=== PATIENT | female | born 1960 | race African-American/Black ===

== ENCOUNTER 2019-11-09 12:25 | Outpatient (CLI) | payer BC ==
[~2019-11-09 12:25] MED LIST: Iopamidol-370 76% 500 ML 1 ML ONE
--- NOTE | 2019-11-09 13:27 | CT ---
CT ABDOMEN AND PELVIS WITH IV CONTRAST 11/09/2019 CLINICAL INFORMATION: Alcohol-induced pancreatitis. Upper abdominal pain. History of cyst of the pancreas. History of colon polyps. COMPARISON: None. Technique: Multiple contiguous axial CT images are obtained through the abdomen and pelvis with IV contrast. Cor onal reformatted images are provided. FINDINGS: Lower Chest: Mild dependent bibasilar atelectasis. Vessels: Vascular calcifications are seen in the abdominal aorta and iliac arteries. Abdomen: Portal vein:Patent Gallbladder: Decompressed. Liver: Diminished attenuation likely attributable to fatty infiltration. Spleen: within normal limits. Pancreas: A 6.2 cm circumscribed cystic lesion is seen involving the tail of the pancreas. A few shabbir tional tiny subcentimeter cystic lesions are also seen with a 12 mm cystic structure also seen in the tail of the pancreas. Calcifications are seen in the region of the junction of the body and tail of the pancreas likely sequela of prior pancreatitis. Adrenals: within normal limits. Kidneys: A 2.2 cm fluid attenuation cystic lesion is seen in the superior pole left kidney most garcía tible with a renal cyst. Right kidney has a normal CT appearance. Bowel: Evidence of colonic diverticulosis. Loops of small bowel are normal in caliber. Appendix: The appendix is visualized and normal in caliber. Peritoneum: No ascites or free air; no fluid collection. Mesentery and Retroperitoneum: No enlarged mesenteric or retroperitoneal lymph nodes. Abdominal Wall: within normal limits. Pelvis: Reproductive Organs: No pelvic masses. Pelvis within normal limits. Bladder: Mostly decompressed but otherwise grossly within normal limits. Bones: Prominent degenerative changes L5-S1 level. IMPRESSION: 1. Large cystic pancreatic lesion tail of the pancreas. Given patient's history of prior pancreatitis as well as calcifications within the adjacent pancreas also suggesting prior pancreatitis, this likely represents pseudocyst formation. However, there are closely adjacent smaller hypodense cystic lesions within the tail of the pancreas largest measuring 12 mm. Given small size of these cystic lesions, follow-up MRI abdomen in 6 months is recommended for further evaluation.. 3. Left renal cyst. 4. Colonic diverticulosis. 5. Fatty infiltration of the liver. 6. Colonic diverticulosis.
== END 2019-11-09 12:26 | disposition home or self-care (01) ==
LOC: BICCT 12:25
PROVIDERS: ATTEND Internal Medicine Gastroenterology
DX: K85.20 Alcohol induced acute pancreatitis without necrosis or infection (principal); K86.2 Cyst of pancreas; R10.10 Upper abdominal pain, unspecified; Z86.010 Personal history of colon polyps; N28.1 Cyst of kidney, acquired; K57.30 Diverticulosis of large intestine without perforation or abscess without bleeding; K76.0 Fatty (change of) liver, not elsewhere classified
CPT/HCPCS: 74177; Q9967

== ENCOUNTER 2020-04-15 16:15 | Inpatient (IN) | payer BC ==
[2020-04-15] MEDS ORDERED: Morphine 4 MG/ML VIAL ONE ×2 (16:28→19:46)
[2020-04-15] MEDS ORDERED: Ondansetron PF 4 MG/2 ML Vial IVP PRN (17:08)
[2020-04-15] MEDS ORDERED: Senokot S 8.6-50 MG TAB PO PRN (17:12)
--- NOTE | 2020-04-15 18:10 | HP ---
CHIEF COMPLAINT: Abdominal pain. HISTORY OF PRESENT ILLNESS: The patient is a 60-year-old female with past medical history of alcoholic pancreatitis, CVA, hypertension, and hyperlipidemia, who presented to the hospital with worsening abdominal pain. The patient's symptoms started about a week ago and her last alcohol intake was a few days prior to the pain. The patient stated that the pain is localized in her upper abdominal area and has been worsening over the past week. She is unable to tolerate eating or drinking due to the worsening of the pain. In the ER, ultrasound of the abdomen was unremarkable and CT scan revealed evidence of pancreatitis with enlarging pseudocyst in addition to duodenitis and gastritis. REVIEW OF SYSTEMS: Negative except as noted in HPI. PAST MEDICAL HISTORY: As noted above. PAST SURGICAL HISTORY: Include back surgery. SOCIAL HISTORY: Alcohol use as noted above. She denies illicit drug use, and endorsed tobacco smoking. ALLERGIES: NO KNOWN ALLERGIES. FAMILY HISTORY: Noncontributory to the current presentation. PHYSICAL EXAMINATION: GENERAL: The patient is alert and oriented x3. HEENT: Head is normocephalic and atraumatic. Extraocular muscles are intact. NECK: Supple. CHEST: Clear to auscultation bilaterally. CARDIOVASCULAR: Examination revealed normal S1, S2, regular rate and rhythm. No murmurs, rubs, or gallops. ABDOMEN: Soft and tender to palpation to the epigastric area. Bowel sounds are present. NEUROLOGIC: Unremarkable. ASSESSMENT: 1. Acute pancreatitis secondary to alcohol use. 2. Alcoholic gastritis. 3. Duodenitis. 4. Hypertension. 5. Hyperlipidemia. PLAN: The patient will be admitted to the hospital. Start IV fluid bolus and then continue with normal saline at 150 mL/h. Clear liquid diet. Protonix 40 mg IV twice daily. Check CBC and CMP in the morning. The patient is not septic and there is no evidence of gallbladder disease. Lovenox for DVT prophylaxis. Job ID: [id number]
[2020-04-15] MEDS ORDERED: Sodium Chloride 0.9% 500 ML IV SCH (19:00)
[2020-04-15] MEDS: Morphine 4 MG/ML VIAL SLOW IVP PRN (20:58)
[2020-04-15] MEDS: Sodium Chloride 0.9% 1,000 ML IV SCH ×2 (20:58→21:09)
[2020-04-15] MEDS: Pantoprazole 40 MG VIAL IVP SCH (20:58)
[2020-04-15 22:52] VITALS: BMI 23.4
[2020-04-16] MEDS: Acetaminophen 325 MG TAB PO PRN (00:57)
[2020-04-16] MEDS: Morphine 4 MG/ML VIAL SLOW IVP PRN ×5 (00:58→20:32)
[2020-04-16] MEDS: Sodium Chloride 0.9% 1,000 ML IV SCH ×4 (03:47→21:31)
[2020-04-16 06:30] LABS: #Lymphocytes 1.6 thou/uL (1.20-3.40); #Neutrophils 9.8 thou/uL (1.40-6.50); %Basophils 0.3 % (0.0-1.0); %Eosinophils 0.2 % (0.0-10.0); %Lymphocytes 12.9 % (21.0-51.0); %Monocytes 7.8 % (0.0-10.0); %Neutrophils 78.8 % (42.0-75.0); Mean Corpuscular HGB CONC 33.9 g/dL (32.0-36.0); Mean Corpuscular Hemoglobin 33.7 pg (27.0-31.0); Mean Corpuscular Volume 99.4 fL (78.0-98.0); Mean Platelet Volume 7.5 fL (7.4-10.4); Platelet Count 313 thou/uL (130-400); RBC Distribution Width 13.7 % (11.5-14.5); Red Blood Cell (RBC) Count 2.97 mill/uL (4.20-5.40); White Blood Cell (WBC) Count 12.5 thou/uL (4.8-10.8)
[2020-04-16 06:54] LABS: ALT (SGPT) 85 U/L (8-55); AST (SGOT) 88 U/L (5-34); Albumin 2.4 g/dL (3.5-5.0); Alkaline Phosphatase 399 U/L (40-110); Bilirubin, Direct 3.3 mg/dL (0.1-0.3); Bilirubin, Total 4.1 mg/dL (0.2-1.2); Protein, Total 5.3 g/dL (6.0-8.3)
[2020-04-16 06:59] LABS: Anion Gap 13 mmol/L (10-20); BUN (Urea Nitrogen) 10 mg/dL (9.8-20.1); Calc. Creatinine Clearance 83 mL/min (70-130); Calcium 7.2 mg/dL (7.8-10.44); Carbon Dioxide 19 mmol/L (22-29); Chloride 109 mmol/L (98-107); Estimated GFR-MDRD Greater than 90; Glucose 98 mg/dL (70-105); Lipase 76 U/L (8-78); Sodium 138 mmol/L (136-145)
[2020-04-16] MEDS: Pantoprazole 40 MG VIAL IVP SCH ×2 (08:22→20:33)
[2020-04-16] MEDS: Enoxaparin Sodium 40 MG/0.4 ML SYRINGE SC SCH (08:23)
[2020-04-16] MEDS ORDERED: FLU VACC QS2020-21(6MOS UP)/PF 60 MCG/0.5 ML SYRINGE IM ONE (09:00)
[2020-04-16] MEDS ORDERED: Sodium Chloride 0.9% 500 ML IV SCH (09:45)
[2020-04-16] MEDS ORDERED: Potassium Chloride 20 MEQ TAB PO SCH (09:45)
--- NOTE | 2020-04-16 13:37 | PDOC.HOSPP ---
- Subjective Encounter Date: 04/16/20 Subjective: The patient still complaining of severe epigastric pain. - Objective Vital Signs & Weight: Vital Signs (12 hours) Temp Pulse Resp BP Pulse Ox 04/16/20 11:48 98.9 F 108 H 18 132/83 100 04/16/20 07:25 99.2 F 105 H 22 H 138/83 98 04/16/20 04:11 98.4 F 102 H 18 102/66 98 Weight Weight 145 lb 4.8 oz I&O: 04/15/20 04/16/20 04/17/20 06:59 06:59 06:59 Intake Total 1800 Balance 1800 Result Diagrams: 04/16/20 06:13 04/16/20 06:13 Hospitalist ROS - Medication Medications: Active Medications Generic Name Dose Route Start Last Admin Trade Name Freq PRN Reason Stop Dose Admin Acetaminophen 650 mg 04/15/20 17:08 04/16/20 00:57 Acetaminophen 325 Mg Tab PO 650 mg Q4H PRN Administration Headache/Fever/Mild Pain (1-3) Enoxaparin Sodium 40 mg 04/16/20 09:00 04/16/20 08:23 Enoxaparin Sodium 40 Mg/0.4 Ml Syringe SC 40 mg 0900 KATHLEEN Administration Sodium Chloride 1,000 mls @ 150 mls/hr 04/15/20 17:15 04/16/20 11:07 Normal Saline 0.9% IV 1,000 mls .Q6H40M KATHLEEN Administration Morphine Sulfate 4 mg 04/15/20 17:12 04/16/20 12:36 Morphine 4 Mg/Ml Vial SLOW IVP 4 mg Q4H PRN Administration Moderate to Severe Pain (6-10) Pantoprazole Sodium 40 mg 04/15/20 21:00 04/16/20 08:22 Pantoprazole 40 Mg Vial IVP 40 mg Q12HR KATHLEEN Administration Sodium Chloride 10 ml 04/15/20 21:00 04/16/20 08:23 Flush - Normal Saline 10 Ml Syringe IVF 10 ml Q12HR KATHLEEN Administration - Exam General Appearance: awake alert ENT: normocephalic atraumatic Neck: supple Heart: RRR Respiratory: normal chest expansion, no tachypnea Gastrointestinal: soft, tender to palpation Neurological: cranial nerve grossly intact, no focal deficits Hosp A/P (1) Acute pancreatitis Code(s): K85.90 - ACUTE PANCREATITIS WITHOUT NECROSIS OR INFECTION, UNSP Status: Acute (2) Alcoholic gastritis Code(s): K29.20 - ALCOHOLIC GASTRITIS WITHOUT BLEEDING Status: Acute (3) Duodenitis Code(s): K29.80 - DUODENITIS WITHOUT BLEEDING Status: Acute (4) Dehydration Code(s): E86.0 - DEHYDRATION Status: Acute (5) Pancreatic pseudocyst Code(s): K86.3 - PSEUDOCYST OF PANCREAS Status: Acute - Plan Continue clear liquid diet and IV morphine as needed for pain. Give another bolus of normal saline 500 cc. Continue NS at 150/h. Replace potassium. Lovenox for DVT prophylaxis.
[2020-04-16] MEDS: Acetaminophen/Codeine 30-300mg Tablet PO PRN (21:58)
[2020-04-17] MEDS: Morphine 4 MG/ML VIAL SLOW IVP PRN (00:49)
[2020-04-17] MEDS: Acetaminophen/Codeine 30-300mg Tablet PO PRN ×2 (03:54→10:10)
[2020-04-17 08:35] LABS: #Eosinphils 0.1 thou/uL (0.0-0.7); #Lymphocytes 1.4 thou/uL (1.20-3.40); #Monocytes 0.8 thou/uL (0.11-0.59); #Neutrophils 12.8 thou/uL (1.40-6.50); %Basophils 0.1 % (0.0-1.0); %Eosinophils 0.4 % (0.0-10.0); %Lymphocytes 9.4 % (21.0-51.0); %Monocytes 5.5 % (0.0-10.0); %Neutrophils 84.6 % (42.0-75.0); Hemoglobin 9.8 g/dL (12.0-16.0); Mean Platelet Volume 7.3 fL (7.4-10.4); Platelet Count 344 thou/uL (130-400); RBC Distribution Width 13.8 % (11.5-14.5); Red Blood Cell (RBC) Count 2.96 mill/uL (4.20-5.40); White Blood Cell (WBC) Count 15.1 thou/uL (4.8-10.8)
[2020-04-17] MEDS: Enoxaparin Sodium 40 MG/0.4 ML SYRINGE SC SCH ×2 (08:36→21:16)
[2020-04-17] MEDS: Pantoprazole 40 MG VIAL IVP SCH ×2 (08:38→21:18)
[2020-04-17 08:56] LABS: Anion Gap 13 mmol/L (10-20); BUN (Urea Nitrogen) 7 mg/dL (9.8-20.1); Calc. Creatinine Clearance 104 mL/min (70-130); Calcium 6.6 mg/dL (7.8-10.44); Carbon Dioxide 17 mmol/L (22-29); Chloride 111 mmol/L (98-107); Estimated GFR-MDRD Greater than 90; Glucose 138 mg/dL (70-105); Sodium 138 mmol/L (136-145)
[2020-04-17 09:15] LABS: Potassium 2.9 mmol/L (3.5-5.1)
[2020-04-17] MEDS ORDERED: Potassium Chloride 20 MEQ TAB PO SCH ×2 (09:45→15:00)
[2020-04-17] MEDS: Sodium Chloride 0.9% 1,000 ML IV SCH (10:00)
[2020-04-17] MEDS: 1/2 NS w/KCL 20 mEq 1,000 ML IV SCH ×2 (10:12→18:52)
[2020-04-17] MEDS ORDERED: fentaNYL Citrate/PF 2,000 MCG in Sodium Chloride 0.9% 60 ML IV PRN (11:30)
--- NOTE | 2020-04-17 12:00 | CT ---
CT Abdomen Pelvis W Con: 04/17/2020 9:07 AM CLINICAL INFORMATION: Pancreatitis COMPARISON: 11/09/2019 TECHNIQUE: Multiple contiguous axial images were obtained and a CT of the abdomen and pelvis with IV contrast. Oral contrast was administered. Coronal and sagittal reformats were performed. FINDINGS: Lower Chest: Small left pleural effusion. Bibasilar dependent atelectasis. Atelectasis is also seen i n the lingula. Abdomen: Liver: within normal limits. Bile Ducts: Enlargement of common bile duct to 10 mm. Central intrahepatic biliary dilatation is also seen. Gallbladder: No calcified gallstones. Normal caliber wall. Pancreas: Stranding changes are seen surrounding the pancreas consistent with acute pancreatitis. The re is enlargement of the pancreatic duct to 10 mm. There is enhancement of the pancreatic parenchyma. Calcifications in the pancreas may be from chronic pancreatitis. There is a fluid collect ion in the tail the pancreas measuring 7.2 cm in size. This has enlarged compared to the prior examination. Smaller subcentimeter fluid collections are seen along the anterior aspect of this large r fluid collection. Fluid density is seen in the anterior aspect of the spleen which was not seen on the prior examination and likely represents fluid collection in the anterior spleen. There is a fl uid collection posterior to the stomach measuring 3.3 cm in size which is new compared to the prior examination. There is a fluid collection in the head of the pancreas measuring 2.3 cm in size which i s also new. Lastly, there is a smaller hypodensity in the head of the pancreas which may represent an additional fluid collection There is partially occlusive thrombus in the portal vein. No pseudoaneurysm is seen extending from th e splenic artery. Spleen: within normal limits. Adrenals: within normal limits. Kidneys: 2.4 cm left renal cyst. Pelvis: Reproductive Organs: No pelvic masses. Ureters: within normal limits. Bladder: within normal limits. Peritoneum: A small amount of free fluid is seen in the pelvis. No free air is identified. Bowel: Normal caliber. Mesentery and Retroperitoneum: No enlarged mesenteric or retroperitoneal lymph nodes. Vessels: Atherosclerotic calcifications. Abdominal Wall: within normal limits. Bones: Degenerative changes in the spine. IMPRESSION: 1. Severe acute pancreatitis with multiloculated fluid collections surrounding the pancreas and invol ving the spleen. The majority of these are new compared to the prior examination. 2. Portal vein thrombus 3. Enlargement of the biliary tree is also new compared to the prior examination. 4. Left pleural effusion and bilateral atelectasis
[2020-04-17] MEDS: Piperacillin/Tazobactam 3.375 GM in Sodium Chloride 0.9% 100 ML IVPB SCH ×2 (12:03→18:52)
--- NOTE | 2020-04-17 14:11 | PDOC.HOSPP ---
- Subjective Encounter Date: 04/17/20 Subjective: The patient's abdominal pain is not controlled. - Objective Vital Signs & Weight: Vital Signs (12 hours) Temp Pulse Resp BP Pulse Ox 04/17/20 12:00 98.6 F 111 H 20 157/94 H 93 L 04/17/20 08:43 92 L 04/17/20 08:00 97.6 F 106 H 20 156/94 H 92 L 04/17/20 04:00 99.3 F 101 H 24 H 151/85 H 96 Weight Weight 145 lb 4.8 oz I&O: 04/16/20 04/17/20 04/18/20 06:59 06:59 06:59 Intake Total 1800 2700 Balance 1800 2700 Result Diagrams: 04/17/20 07:55 04/17/20 07:55 Hospitalist ROS - Medication Medications: Active Medications Generic Name Dose Route Start Last Admin Trade Name Freq PRN Reason Stop Dose Admin Acetaminophen 650 mg 04/15/20 17:08 04/16/20 00:57 Acetaminophen 325 Mg Tab PO 650 mg Q4H PRN Administration Headache/Fever/Mild Pain (1-3) Enoxaparin Sodium 40 mg 04/16/20 09:00 04/17/20 08:36 Enoxaparin Sodium 40 Mg/0.4 Ml Syringe SC 40 mg 0900 KATHLEEN Administration Piperacillin Sod/Tazobactam 100 mls @ 200 mls/hr 04/17/20 12:00 04/17/20 1 2:03 Sod 3.375 gm/ Sodium Chloride IVPB 100 mls Q6HR KATHLEEN Administration Potassium Chloride/Sodium Chloride 1,000 mls @ 125 mls/hr 04/17/20 09:45 04/17/20 10:12 1/2 Ns W/Kcl 20 Meq IV 1,000 mls .Q8H KATHLEEN Administration Fentanyl Citrate 2,000 mcg/ 100 mls @ 0 mls/hr 04/17/20 11:30 04/17/20 11:57 Sodium Chloride IV 100 mls INF PRN Administration Pain As Directed Pantoprazole Sodium 40 mg 04/15/20 21:00 04/17/20 08:38 Pantoprazole 40 Mg Vial IVP 40 mg Q12HR KATHLEEN Administration Sodium Chloride 10 ml 04/15/20 21:00 04/17/20 10:15 Flush - Normal Saline 10 Ml Syringe IVF Not Given Q12HR KATHLEEN - Exam General Appearance: awake alert ENT: normocephalic atraumatic Neck: supple, no JVD Heart - other findings: Tachycardia with regular rhythm Respiratory: CTAB, no wheezes, no rales, no ronchi Gastrointestinal: soft, tender to palpation Neurological: no focal deficits, no new deficit Hosp A/P (1) Acute pancreatitis Code(s): K85.90 - ACUTE PANCREATITIS WITHOUT NECROSIS OR INFECTION, UNSP Status: Acute (2) Alcoholic gastritis Code(s): K29.20 - ALCOHOLIC GASTRITIS WITHOUT BLEEDING Status: Acute (3) Duodenitis Code(s): K29.80 - DUODENITIS WITHOUT BLEEDING Status: Acute (4) Dehydration Code(s): E86.0 - DEHYDRATION Status: Acute (5) Pancreatic pseudocyst Code(s): K86.3 - PSEUDOCYST OF PANCREAS Status: Acute (6) Peripancreatic abscess Code(s): K85.90 - ACUTE PANCREATITIS WITHOUT NECROSIS OR INFECTION, UNSP Status: Acute (7) Splenic abscess Code(s): D73.3 - ABSCESS OF SPLEEN Status: Acute (8) Portal vein thrombosis Code(s): I81 - PORTAL VEIN THROMBOSIS Status: Acute (9) Dilated bile duct Code(s): K83.8 - OTHER SPECIFIED DISEASES OF BILIARY TRACT Status: Acute (10) Hypocalcemia Code(s): E83.51 - HYPOCALCEMIA Status: Acute (11) Hypomagnesemia Code(s): E83.42 - HYPOMAGNESEMIA Status: Acute (12) Hypokalemia Code(s): E87.6 - HYPOKALEMIA Status: Acute - Plan The patient's condition deteriorated over the past 24 hours. She is currently septic with severe pancreatitis and CT scan of the abdomen revealed fluid collections around the pancreas and in the spleen likely presenting abscesses. Dilated common bile duct and portal vein thromboses were also noted. The patient was started on IV Zosyn and meropenem. Continue IV fluids. Replace potassium and magnesium and calcium. Start anticoagulation with Lovenox 1 g/kg every 12 hours if no surgical intervention is planned at this time. The patient will be moved to the [facility] for closer monitoring. I have requested the help of infectious disease, gastroenterology, and surgery services.
[2020-04-17] MEDS ORDERED: Magnesium Sulfate 4 GM in Sodium Chloride 0.9% 250 ML 250 ML IVPB SCH (15:15)
[2020-04-17] MEDS ORDERED: Calcium Gluc 4.6 MEQ/10 ML (100 MG/ML) SLOW IVP SCH (15:15)
[2020-04-17 15:35] LABS: Phosphorus 1.9 mg/dL (2.3-4.7)
[2020-04-17] MEDS: MEROPENEM 1 GM/50 ML 1 GM in Premix Bag 1 BAG IVPB SCH (21:18)
--- NOTE | 2020-04-17 23:03 | CON ---
DATE OF CONSULTATION: 04/17/2020 CHIEF COMPLAINT: Abdominal pain. HISTORY OF PRESENT ILLNESS: Ms. Ramirez is a 60-year-old woman who has had a history of chronic pancreatitis and returns with worsening abdominal pain over the last 3 weeks and then markedly worsening over the weekend, so she came into the emergency room for further care. She was admitted to the hospital and given IV fluids and pain control. However, pain has just continued to persist and despite IV opioids, her white blood cell count was noted to increase and she has been tachycardic and so she was moved to the [facility] for further care and GI was consulted to help with management. She has a history of chronic alcoholic pancreatitis. Her last drink she states was 3 weeks ago. She had a CT scan of the abdomen and pelvis back in October 2019, which showed pancreatic calcifications and a 6 cm pseudocyst in the tail of the pancreas and another 12 mm cyst in the tail of the pancreas. Due to the ongoing pain, she had a CT scan repeated today, which showed the cyst in the tail of pancreas to have increased to 7.2 cm in size. She had another fluid collection posterior to the stomach measuring 3.3 cm and another fluid collection measuring 2.3 cm in the head of the pancreas. A partially occlusive thrombus was noted in the portal vein. This was not seen on prior CT scan in October. She also has increased dilation of the biliary tree to 10 mm, which was not present on previous CT and reported pancreatic duct dilation as well. PAST MEDICAL HISTORY: Chronic pancreatitis, hypertension, hyperlipidemia, stroke. PAST SURGICAL HISTORY: Back surgery. She has had a colonoscopy. FAMILY HISTORY: Negative for GI malignancies. SOCIAL HISTORY: She smokes 3/4 of a pack a day. She has had ongoing alcohol use up until 2 to 3 weeks ago. No drugs. ALLERGIES: NO KNOWN DRUG ALLERGIES. MEDICATIONS: At home prior to admission: 1. Losartan. 2. Pantoprazole. 3. Metoprolol. 4. Atorvastatin. Current inpatient medications include: 1. Enoxaparin. 2. Meropenem. 3. Zosyn. 4. Fentanyl. REVIEW OF SYSTEMS: Negative x10 systems reviewed except as stated in the history of present illness. PHYSICAL EXAMINATION: VITAL SIGNS: Temperature is 98.0, she did have a temperature of 102.0 on 04/16/2020 at midnight; blood pressure 163/105; pulse 106. GENERAL: She appears uncomfortable with her abdominal discomfort. She is awake and alert, but slow to answer some questions and her helps her answer all these questions. HEENT: Her eyes have no scleral icterus. Oropharynx is clear without lesions. LUNGS: Clear to auscultation bilaterally. HEART: Regular rate. Tachycardic. S1 and S2. ABDOMEN: Soft, tender in the upper abdomen without guarding, but I did just push lightly due to the significant tenderness. Bowel sounds are present. EXTREMITIES: No lower extremity edema. LABORATORY DATA: White blood cell count 15.1, hemoglobin 9.8, platelets 344. Sodium 138, potassium 2.9, chloride 111, CO2 of 17, BUN 13, creatinine 0.6, phosphorus 1.9, magnesium less than 0.6, bilirubin 4.1, direct bilirubin 3.3, AST 88, ALT 85, alkaline phosphatase 399, albumin 2.4, lipase 76, down from 110 on the 17th. IMPRESSION: 1. Acute flare of chronic pancreatitis with acute inflammatory changes noted around the pancreas on presentation with minimal elevation of the lipase. 2. Multiple fluid collections around the pancreas. These are most likely pancreatic pseudocyst. However, abscess is considered as well. 3. Hyperbilirubinemia, which is primarily direct and elevated alkaline phosphatase to 399. She could have obstruction of the bile duct from either stone or scar of the bile duct from her chronic pancreatitis. She has mild bile duct dilation up to 10 mm, which is new compared to previous studies. She does still have a gallbladder. The liver tests could be elevated from chronic alcohol-induced liver disease, however, this is more of a cholestatic pattern. 4. Leukocytosis. Again, consideration could be abscess with the fluid collection noted around the pancreas or cholangitis is also a consideration with the dilated bile duct and elevated bilirubin. RECOMMENDATIONS: 1. Electrolyte management, pain control, and IV fluids per the primary service. 2. We will check the trend of her LFTs and start with an MRCP/MRI with contrast of her pancreas and biliary tree tomorrow. If her liver tests are trending up and her bile ducts have more of an obstructive appearance, then ERCP will likely be indicated to follow. If the biliary system does not have an obvious obstructive process and the fluid collections have more of an appearance consistent with abscess, then a CT-guided fine-needle aspiration versus EUS with FNA could be considered. 3. She is on broad-spectrum antibiotics. Currently, on Zosyn and meropenem. Job ID: [id number]
[2020-04-18] MEDS: Piperacillin/Tazobactam 3.375 GM in Sodium Chloride 0.9% 100 ML IVPB SCH ×3 (00:04→10:27)
[2020-04-18] MEDS: Acetaminophen 325 MG TAB PO PRN (01:35)
[2020-04-18 03:47] LABS: #Monocytes 0.8 thou/uL (0.11-0.59); #Neutrophils 13.6 thou/uL (1.40-6.50); %Basophils 0.1 % (0.0-1.0); %Eosinophils 0.3 % (0.0-10.0); %Lymphocytes 6.7 % (21.0-51.0); %Monocytes 5.1 % (0.0-10.0); %Neutrophils 87.7 % (42.0-75.0); Hemoglobin 9.7 g/dL (12.0-16.0); Mean Corpuscular HGB CONC 34.7 g/dL (32.0-36.0); Mean Corpuscular Hemoglobin 33.6 pg (27.0-31.0); Mean Platelet Volume 7.2 fL (7.4-10.4); Platelet Count 382 thou/uL (130-400); RBC Distribution Width 13.8 % (11.5-14.5); Red Blood Cell (RBC) Count 2.87 mill/uL (4.20-5.40); White Blood Cell (WBC) Count 15.5 thou/uL (4.8-10.8)
[2020-04-18 03:59] LABS: Anion Gap 16 mmol/L (10-20); BUN (Urea Nitrogen) Less than 4 mg/dL (9.8-20.1); Calc. Creatinine Clearance 106 mL/min (70-130); Calcium 7.1 mg/dL (7.8-10.44); Carbon Dioxide 15 mmol/L (22-29); Chloride 107 mmol/L (98-107); Estimated GFR-MDRD Greater than 90; Glucose 98 mg/dL (70-105); Phosphorus 1.6 mg/dL (2.3-4.7); Potassium 4.3 mmol/L (3.5-5.1); Sodium 134 mmol/L (136-145)
[2020-04-18] MEDS: 1/2 NS w/KCL 20 mEq 1,000 ML IV SCH (04:21)
[2020-04-18] MEDS ORDERED: Electrolyte Replacement Protoc 1 EACH EACH FS SCH (04:45)
[2020-04-18] MEDS ORDERED: Potassium Phosphate 15 MMOL in Sodium Chloride 0.9% 100 ML IVPB SCH (05:15)
[2020-04-18] MEDS: MEROPENEM 1 GM/50 ML 1 GM in Premix Bag 1 BAG IVPB SCH ×2 (05:45→15:15)
[2020-04-18] MEDS ORDERED: SODIUM CHLORIDE 0.9% IVPB SCH (08:15)
[2020-04-18] MEDS ORDERED: MAGNESIUM SULFATE IVPB SCH (08:15)
[2020-04-18] MEDS ORDERED: SODIUM PHOSPHATE IVPB SCH (08:15)
[2020-04-18] MEDS ORDERED: Magnevist 469MG/ML 20 ML VIAL ONE (09:06)
[2020-04-18] MEDS ORDERED: Magnesium Sulfate 4 GM in Sodium Chloride 0.9% 250 ML 250 ML IVPB SCH (09:30)
[2020-04-18] MEDS: Enoxaparin Sodium 40 MG/0.4 ML SYRINGE SC SCH (10:27)
[2020-04-18] MEDS: Sodium Chloride 0.9% 1,000 ML IV SCH ×2 (10:28→19:40)
--- NOTE | 2020-04-18 11:05 | MRI ---
MRI ABDOMEN WITH AND WITHOUT CONTRAST: HISTORY: Pancreatitis. COMPARISON: CT 04/17/[address] 11/09/2019. FINDINGS: Moderate layering left pleural effusion. Small right effusion. No significant pericardial fluid. Massive intrahepatic and intrahepatic biliary dilatation. The cystic duct is also abnormally dilated . There is a mass of the pancreatic head/uncinate process on the diffusion weighted imaging sequence se steven 11, image 94 measuring approximately 1.5 cm. There is thrombus in the portal vein. There is enlargement of the pancreatic tail pseudocyst from the 11/09/2019 exam measuring up to 7.5 cm in size. There are also abscesses which have developed from that examination which involve the sple ty parenchyma, anterior pararenal space, along the undersurface of the gastric body in the lesser sa c, left pericolic gutter. The intraparenchymal pseudocyst present at the pancreatic head just before the tumor. The main pancreatic duct is massively dilated measuring up to a centimeter in size. Common bile duct measures 11-12 mm. The gallbladder was distended with debris and sludge. There is a cyst at superior pole left kidney, benign. No retroperitoneal or periureteric lymphadenop athy. No definite hepatic mass is appreciated. Some mild shunting of hepatic segment 8 near the diaphragm. IMPRESSION: 1. Pancreatic head mass measuring up to 1.5 cm at the head/uncinate process junction causing massive dilatation of the pancreatic duct as well as common bile duct causing intrahepatic biliary dilatation . 2. Sludge and cholelithiasis with distended gallbladder. 3. Pancreatic body and tail pseudocyst as well as abscess formation involving the lesser sac involvi ng the posterior surface of the gastric body, left paracolic gutter, and involving the splenic parenc hyma. 4. Likely a benign thrombus and less likely tumor thrombus within the portal vein. Dr. Roca notified of findings via telephone 10:30 a.m. CODE CR POS: [facility]
--- NOTE | 2020-04-18 13:21 | PRG ---
DATE OF SERVICE: 04/18/2020 SUBJECTIVE: Mrs. Ramirez has fairly good pain control with the fentanyl. She remains on Zosyn and meropenem. She has been afebrile with borderline tachycardia. She feels hungry, but nauseated, does not feel like she could tolerate oral intake. She underwent MRI this morning. OBJECTIVE: VITAL SIGNS: Temperature 97.4, did spike up to 100.2 overnight. Heart rate 101, blood pressure 148/96, and 100% oxygen saturation on room air. GENERAL: Chronically ill, nontoxic appearing, no acute distress. HEART: Regular. Borderline tachycardia. LUNGS: Clear to auscultation bilaterally. ABDOMEN: Nondistended. Bowel sounds hypoactive. Some diffuse tenderness to palpation, but no guarding, rebound, or tenderness. EXTREMITIES: No peripheral edema. LABORATORY STUDIES: WBC 15.5, hemoglobin 9.7, platelets 382. Sodium 134, potassium 4.3, BUN is less than 4, creatinine 0.59, magnesium 1.5, phosphorus 1.6, lipase 76. Total bilirubin 4.1, direct bilirubin 3.3, alkaline phosphatase 399, AST 88, ALT 85, albumin 2.4. IMAGING STUDIES: MRI of the abdomen was performed this morning. This demonstrates what appears to be a 1.5 cm mass in the pancreatic head/uncinate process. There is enlargement of the pancreatic tail pseudocyst, now measuring 7.5 cm and there are also abscesses that have newly developed involving the splenic parenchyma, anterior pararenal space and undersurface of the gastric body and left pericolic gutter. The main pancreatic duct is massively dilated up to 1 cm in size. The common bile duct measures 11-12 mm and the gallbladder is distended with debris and sludge. There is benign versus tumor thrombus in the portal vein. ASSESSMENT AND PLAN: 1. Pancreatic head mass per MRI, causing pancreatic ductal and biliary ductal dilation. This is concerning for malignancy. This is on a background of chronic pancreatitis, but the appearance on current imaging is masslike. Consider also the possibility of autoimmune pancreatitis. Tissue diagnosis is recommended. I would recommend transfer to a tertiary center with capability for upper endoscopic ultrasound with FNA biopsy of this lesion. 2. Peripancreatic abscesses and pseudocyst. These fluid collections have the appearance more consistent with abscesses on the MRI imaging. She did spike a low-grade fever last night, but is otherwise hemodynamically stable. She continues on Zosyn and meropenem. 3. Elevated LFTs, this is in a cholestatic pattern. Likely multifactorial from alcohol plus relative biliary dilation from this pancreatic head lesion. Job ID: [id number]
[2020-04-18 14:06] LABS: ALT (SGPT) 78 U/L (8-55); AST (SGOT) 122 U/L (5-34); Albumin 2.6 g/dL (3.5-5.0); Alkaline Phosphatase 652 U/L (40-110); Bilirubin, Direct 6.5 mg/dL (0.1-0.3); Bilirubin, Total 8.2 mg/dL (0.2-1.2); Lipase 148 U/L (8-78); Protein, Total 5.9 g/dL (6.0-8.3)
[2020-04-18 15:15] VITALS: BP 153/91
[2020-04-18] MEDS: Pantoprazole 40 MG VIAL IVP SCH ×2 (15:16→19:49)
--- NOTE | 2020-04-18 15:20 | PDOC.HOSPP ---
- Subjective Encounter Date: 04/18/20 Subjective: The patient's abdominal pain is controlled on [employer]. - Objective Vital Signs & Weight: Vital Signs (12 hours) Temp Pulse Pulse BP BP 04/18/20 14:06 105 H 107 H 153/91 H 161/101 H 04/18/20 12:00 98.6 F 04/18/20 07:55 97.4 F L 04/18/20 03:46 98.5 F Weight Weight 145 lb 4.8 oz Most Recent Monitor Data Heart Rate from ECG 103 NIBP 144/91 NIBP BP-Mean 108 Respiration from ECG 20 SpO2 100 I&O: 04/17/20 04/18/20 04/19/20 06:59 06:59 06:59 Intake Total 2700 1750 Output Total 2200 700 Balance 2700 -450 -700 Result Diagrams: 04/18/20 03:28 04/18/20 03:28 Hospitalist ROS - Medication Medications: Active Medications Generic Name Dose Route Start Last Admin Trade Name Freq PRN Reason Stop Dose Admin Acetaminophen 650 mg 04/15/20 17:08 04/18/20 01:35 Acetaminophen 325 Mg Tab PO 650 mg Q4H PRN Administration Headache/Fever/Mild Pain (1-3) Enoxaparin Sodium 40 mg 04/17/20 21:00 04/18/20 10:27 Enoxaparin Sodium 40 Mg/0.4 Ml Syringe SC 40 mg 0900,2100 KATHLEEN Administration Piperacillin Sod/Tazobactam 100 mls @ 200 mls/hr 04/17/20 12:00 04/18/20 10:27 Sod 3.375 gm/ Sodium Chloride IVPB 100 mls Q6HR KATHLEEN Administration Fentanyl Citrate 2,000 mcg/ 100 mls @ 0 mls/hr 04/17/20 11:30 04/17/20 11:57 Sodium Chloride IV 100 mls INF PRN Administration Pain As Directed Meropenem 1 gm/ Device 50 mls @ 100 mls/hr 04/17/20 22:00 04/18/20 15:15 IVPB 50 mls Q8HR KATHLEEN Administration Sodium Chloride 1,000 mls @ 100 mls/hr 04/18/20 09:30 04/18/20 10:28 Normal Saline 0.9% IV 1,000 mls .Q10H KATHLEEN Administration Pantoprazole Sodium 40 mg 04/15/20 21:00 04/18/20 15:16 Pantoprazole 40 Mg Vial IVP Not Given Q12HR KATHLEEN Sodium Chloride 10 ml 04/15/20 21:00 04/18/20 10:28 Flush - Normal Saline 10 Ml Syringe IVF 10 ml Q12HR KATHLEEN Administration Sodium Chloride 10 ml 04/15/20 18:45 04/17/20 15:41 Flush - Normal Saline 10 Ml Syringe IVF 10 ml PRN PRN Administration Saline Flush - Exam General Appearance: awake alert ENT: normocephalic atraumatic Neck: supple, no JVD Respiratory: normal chest expansion, no tachypnea Gastrointestinal: soft, non-distended, tender to palpation Neurological: cranial nerve grossly intact, no focal deficits Hosp A/P (1) Acute pancreatitis Code(s): K85.90 - ACUTE PANCREATITIS WITHOUT NECROSIS OR INFECTION, UNSP Status: Acute (2) Alcoholic gastritis Code(s): K29.20 - ALCOHOLIC GASTRITIS WITHOUT BLEEDING Status: Acute (3) Duodenitis Code(s): K29.80 - DUODENITIS WITHOUT BLEEDING Status: Acute (4) Dehydration Code(s): E86.0 - DEHYDRATION Status: Acute (5) Pancreatic pseudocyst Code(s): K86.3 - PSEUDOCYST OF PANCREAS Status: Acute (6) Peripancreatic abscess Code(s): K85.90 - ACUTE PANCREATITIS WITHOUT NECROSIS OR INFECTION, UNSP Status: Acute (7) Splenic abscess Code(s): D73.3 - ABSCESS OF SPLEEN Status: Acute (8) Portal vein thrombosis Code(s): I81 - PORTAL VEIN THROMBOSIS Status: Acute (9) Dilated bile duct Code(s): K83.8 - OTHER SPECIFIED DISEASES OF BILIARY TRACT Status: Acute (10) Hypocalcemia Code(s): E83.51 - HYPOCALCEMIA Status: Acute (11) Hypomagnesemia Code(s): E83.42 - HYPOMAGNESEMIA Status: Acute (12) Hypokalemia Code(s): E87.6 - HYPOKALEMIA Status: Acute - Plan 04/17: The patient's condition deteriorated over the past 24 hours. She is currently septic with severe pancreatitis and CT scan of the abdomen revealed fluid collections around the pancreas and in the spleen likely presenting abscesses. Dilated common bile duct and portal vein thromboses were also noted. The patient was started on IV Zosyn and meropenem. Continue IV fluids. Replace potassium and magnesium and calcium. Start anticoagulation with Lovenox 1 g/kg every 12 hours if no surgical intervention is planned at this time. The patient will be moved to the [facility] for closer monitoring. I have requested the help of infectious disease, gastroenterology, and surgery services. 04/18: Status post MRCP which showed a pancreatic head mass. The possibility of an abscess formation cannot be excluded. The patient requires endoscopic ultrasound with tissue diagnosis. GI assisting with transfer to [facility].
[2020-04-18 16:04] VITALS: TEMP 98.8
--- NOTE | 2020-04-18 17:42 | CON ---
DATE OF CONSULTATION: 04/17/2020 REQUESTING PHYSICIAN: Dr. Brandyn Sprague. HISTORY OF PRESENT ILLNESS: This is a 60-year-old woman with history of chronic alcoholism and chronic pancreatitis over the last 6 months. The patient presented at this time with recurrent severe epigastric abdominal pain over the last 3 to 4 weeks, associated with some nausea and nonbilious emesis. She has not had any bowel movement over the last 1 week. She passes flatus occasionally. She reports her pain now at 9 to 10/10 despite being on intravenous analgesics. She denies any fevers or chills. PAST MEDICAL HISTORY: Significant for chronic pancreatitis, hyperlipidemia, essential hypertension, and cerebrovascular accident with no significant residual deficits. PAST SURGICAL HISTORY: Pertinent for back surgery, x1 through a low Pfannenstiel incision, as well as a colonoscopy. FAMILY HISTORY: Noncontributory for this patient's age. SOCIAL HISTORY: She is a G5, P3, who admits to smoking half a pack of cigarettes per day and has done so for over 30 years. She drinks heavily and usually that consists of wine daily. She was drinking up to about 3 days prior to onset of her pain. MEDICATIONS: Prehospitalization medications include; 1. Pantoprazole 40 mg p.o. b.i.d. 2. Metoprolol 200 mg p.o. daily. 3. Atorvastatin 10 mg p.o. at bedtime. 4. Valsartan 320 mg p.o. daily. ALLERGIES: THE PATIENT DENIES ANY KNOWN DRUG ALLERGIES. REVIEW OF SYSTEMS: Ten-point review of systems essentially unremarkable except as stated in past medical history and chief complaint. PHYSICAL EXAMINATION: GENERAL: This reveals a 60-year-old, normally developed woman, who is otherwise coherent and interactive and appears stated age. The patient is alert and oriented x3, appears to be in moderate acute distress secondary to severe abdominal pain. VITAL SIGNS: At the time of my evaluation, these include blood pressure 157/94, pulse 111, respiratory rate 20, maximum temperature in the previous 24 hours was 99.3 degrees Fahrenheit. Her temperature has been as high as 102 degrees Fahrenheit on 04/16/2020. Oxygen saturation 93% on room air. HEENT: Pupils are equally round and reactive to light and accommodation. HEART: Reveals regular rate with sinus tachycardia. No murmurs or gallops auscultated. LUNGS: Clear to auscultation bilaterally. Breathing, regular and nonlabored. ABDOMEN: Soft, moderately distended with generalized tenderness to palpation. She has no rebound tenderness present. Liver and spleen are nonpalpable below costal margin. She had a negative Yvon and Barahona Eaton sign. NEUROLOGIC: Reveals no focal deficits present. LABORATORY FINDINGS: Include a CBC with 15,100 white blood cells, this is up from 12,500 on 04/16/2020. Hemoglobin and hematocrit are 9.8 and 29.6 respectively. Platelet count 344,000. Metabolic profile; sodium 138, potassium 2.9, chloride 111, bicarb 17, BUN 7, creatinine 0.60, glucose 138. Magnesium less than 0.6, phosphorus 1.9. I have personally reviewed the CT scan of the abdomen and pelvis, which was obtained yesterday and this reveals stranding and inflammatory changes surrounding the pancreas, the pancreatic duct is also enlarged at 10 mm. Multiple small cysts within the pancreas itself. There is 7.2 cm fluid collection between the pancreatic tail and the spleen. Also noted is a 3.3 cm cystic fluid collection behind the stomach. There is a partial occlusion of the portal vein by a thrombus. IMPRESSION: Acute on chronic pancreatitis with pancreatic pseudocyst. There is no evidence of necrotizing process within the pancreas itself. RECOMMENDATIONS: 1. Continue with broad-spectrum antibiotic therapy, especially using meropenem. 2. Correct abnormal electrolytes. 3. There is no acute surgical indication for this patient at this time. 4. MRI of the abdomen was obtained today and shows 1.5 cm pancreatic head mass causing pancreatic ductal and intrahepatic biliary ductal dilatation. Pseudocyst involving the pancreatic tail and body was also noted. 5. The thrombus within the portal vein is again visualized. 6. Fluid collection involving the lesser sac and posterior aspect of the gastric body is suspicious for abscess. 7. On the basis of this, further evaluation by Interventional Gastroenterology is warranted for possible endoscopic biopsy of the pancreatic head mass as well as fine-needle aspiration of the fluid collection within the lesser sac to rule out an abscess, which would require adequate drainage. 8. My evaluation of the patient this morning however reveals the patient has remained afebrile. 9. Her pain this morning is now reported at 4 to 5/10 and with no peritoneal signs present. 10. I also discussed with Gastroenterology, who is contemplating transfer of the patient to the care of an Interventional Gastroenterology in [place]. I agree with this plans. Thank you again, Dr. Sprague, for allowing me the opportunity to participate in the care of this patient. Job ID: [id number]
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
--- NOTE | 2020-04-19 10:44 | PQF ---
CLINICAL DOCUMENTATION CLARIFICATION FORM: Dear Dr. Sprague Date 04/19/2020 Please exercise your independent, professional judgment in responding to the clarification form. Clinical indicators are provided on the bottom of this form for your review. Please check appropriate box(es): [ > ] Sepsis due to severe pancreatitis. [ ] Sepsis due to other: [ ] Localized infection without sepsis [ ] Other diagnosis [ ] Unable to determine In addition, please specify: Present on Admission (POA): [ >] Yes [ ] No [ ] Unable to determine For continuity of documentation, please document condition throughout progress notes and discharge summary. Thank You. To be completed by CDI/Coding staff for physician review: CLINICAL INDICATORS - SIGNS / SYMPTOMS / LABS / RESULTS AND LOCATION IN MR *ER Record 04/15: VS: BP 117/84, Pulse 118, Resp. 19. Temp. 98.9 *H&P 04/15 (Darcie) Assessment: Acute pancreaittis 2/2 alcohol use. Plan: The pt is not septic and there is no evidence of gallbladder disease. *LAB: 04/16 WBC 12.5 04/17 WBC 15.1 04/18 WBC 15.5 *04/17 Consult (Abelino) VS: Temp. 98.0, she did have temperature of 102.0 on 04/16/2020 at midnight, BP 163/105, pulse 106 Lab: WBC 15.1 *04/17 pn (Darcie) She is currently septic with severe pancreatitis and CT scan of the abdomen revealed fluid collections around the pancreas and in the spleen likely presenting abscesses. RISK FACTORS / RESULTS AND LOCATION IN MR H&P 04/15 (Darcie) Assessment: Acute pancreatitis 2/2 alcohol use. Alcoholic gastritis. 04/18 pn (Case) Pancreatic head mass per MRI, causing pancreatic ductal and biliary ductal dilation. Peripancreatic abscesses and pseudocyst. TREATMENTS / RESULTS AND LOCATION IN MR H&P 04/15 (Darcie) Start IV fluid bolus and then cont. NS at 150ml/h 04/17 pn (Darcie) Plan: The pt was started on IV Zosyn and meropenem ID Consult 04/18 Thank you, Jessica Madrid RN, [email or web address] This is a permanent part of the Medical Record [facility]
== END 2020-04-18 20:00 | disposition short-term general hospital (02) | DRG 871 ==
LOC: ERS 16:15 → T4-A 17:05 → IMCU/EMU 04-17 17:00
PROVIDERS: ADMIT Internal Medicine; ATTEND Internal Medicine
DX: A41.9 Sepsis, unspecified organism (principal); K85.20 Alcohol induced acute pancreatitis without necrosis or infection; I81 Portal vein thrombosis; K86.3 Pseudocyst of pancreas; E78.5 Hyperlipidemia, unspecified; E86.0 Dehydration; K29.80 Duodenitis without bleeding; K29.20 Alcoholic gastritis without bleeding; D73.3 Abscess of spleen; I10 Essential (primary) hypertension; Z79.899 Other long term (current) drug therapy; Z86.73 Personal history of transient ischemic attack (TIA), and cerebral infarction without residual deficits; E87.6 Hypokalemia; K83.8 Other specified diseases of biliary tract; E83.51 Hypocalcemia; E83.42 Hypomagnesemia; D72.829 Elevated white blood cell count, unspecified
CPT/HCPCS: 36415; 74177; 74183; 80048; 80076; 83690; 83735; 84100; 85025; 86140; 86301; 96374; 96376; A9579; C9113; J1650; J2001; J2185; J2270; J2543; J3010; J3475; J3480; J3490; J7050